=== PATIENT | female | born 1950 | race Caucasian/White ===

== ENCOUNTER 2019-05-20 12:09 | Inpatient (IN) | payer MEDICARE, MEDICAID ==
[2019-05-20] VITALS (35 sets, daily range): BP systolic 79–121; BP diastolic 49–81
[~2019-05-20] VITALS: Ht 170.2 cm; Wt 102.5 kg
--- NOTE | 2019-05-20 15:10 | NUR ---
PATIENT RECEIVED VIA EMS STRETCHER, ON LEVOPHED GTT AT 6 MCG/MIN AND O2 VIA NC AT 2 LPM VIA NC. PATIENT ALERT AND ORIENTED X 4. VSS. PATIENT ASSESSMENT COMPLETED. IV 20 GA LEFT WRIST AND IV 20 GA RIGHT FA PATENT. FELTON CATH WITH 200 CC UOP, DARK YELLOW NOTED. SR ON CM RATE OF 86, RR - 16 WITH SPO2 96%. BBS - CLEAR AND EQUAL.
[2019-05-20] MEDS ORDERED: PINDOLOL5 MG PO (15:28)
[2019-05-20] MEDS ORDERED: VITAMIN D31000 UNIT PO (15:28)
[2019-05-20] MEDS ORDERED: CLOTRIMAZOLE-BE30 ML TOPICAL (15:28)
[2019-05-20] MEDS ORDERED: PROTONIX40 MG PO (15:29)
--- NOTE | 2019-05-20 15:30 | NUR ---
DR. CALDERON AT ROOM ALONG WITH STEREOPTICIAN'S, EXAMINE PATIENT.
[2019-05-20] MEDS ORDERED: TESSALON PERLE100 MG PO (15:32)
[2019-05-20] MEDS ORDERED: PACERONE200 MG PO (15:33)
--- NOTE | 2019-05-20 15:50 | NUR ---
BP 108/65 (83) LEVOPHED GTT AT 2 MCG/MIN 15 CC/HR. STOPPED LEVOPHED GTT.
--- NOTE | 2019-05-20 16:46 | NUR ---
SPOKE TO JUAQUIN FLORES APN ADVISED TO CONTINUE LEVOPHED GTT FOR MAP OF >75.
--- NOTE | 2019-05-20 16:48 | NUR ---
BP 79/49 (68) LEVOPHED GTT RESTARTED AT 4 MCG/MIN.
[2019-05-20 16:59] LABS: BASOPHILS 0.2 % (0-2); EOSINOPHILS 0.9 % (0-7); HEMATOCRIT 27.9 % (36.0-48.0); HEMOGLOBIN 9.1 g/dL (12-16); IMMATURE GRANULOCYTES 1.8 % (0-5); LYMPHOCYTES 4.8 % (15-50); MCH 26.5 pg (26.0-34.0); MCHC 32.6 g/dL (31.0-37.0); MCV 81.1 fL (80.0-100.0); MONOCYTES 9.2 % (2-11); NEUTROPHILS 83.1 % (40-80); PLATELET COUNT 58 10x3/uL (130-400); RBC 3.44 10x6/uL (4.00-5.40); RDW 18.6 % (11.5-14.5); WBC 11.6 10x3/uL (4.8-10.8)
[2019-05-20 17:11] LABS: ALBUMIN 1.7 g/dL (3.4-5.0); ANION GAP 16.9 mmol/L (8-16); BILIRUBIN - TOTAL 1.31 mg/dL (0.2-1.3); CALCIUM 8.2 mg/dL (8.5-10.1); CARBON DIOXIDE 11.8 mmol/L (21.0-32.0); CREATININE - SERUM 3.1 mg/dL (0.6-1.3); POTASSIUM - SERUM 3.7 mmol/L (3.5-5.1)
[2019-05-20 18:40] LABS: PLATELET ESTIMATE DECREASED
--- NOTE | 2019-05-20 19:00 | NUR ---
BEDSIDE REPORT AND SHIFT ASSESSMENT COMPLETE. L WRIST AND R FOREARM PIV, DRESSING CDI. LEVOPHED 8 MCG/MIN, 1/2 NS @ 125 W/ ABX. DENIES ANY NEEDS AT THIS TIME, WILL CONTINUE TO MONITOR.
--- NOTE | 2019-05-20 19:19 | NUR ---
PAGED DR. OLVERA AND CALLED BACK, ADVISED OF CONSULT WANTS ECHO DONE IN AM.
--- NOTE | 2019-05-20 19:21 | NUR ---
PAGED DR. BARROW TO NOTIFIY OF CONSULT.
--- NOTE | 2019-05-20 19:29 | NUR ---
DR. BARROW CALLED BACK WANTS ABG AND CXR IN AM.
--- NOTE | 2019-05-20 21:00 | NUR ---
MED GIVEN PER DEC. PT STATES SHE HAS NO ISSUE SWALLOWING PILLS WITH WATER, NO ISSUES NOTED. DENIES NEEDS AT THIS TIME.
--- NOTE | 2019-05-20 23:00 | NUR ---
REASSESSMENT COMPLETE. FELTON CARE AND CHG BATH COMPLETE. PT DENIES ANY NEEDS AT THIS TIME. WILL CONTINUE TO MONITOR.
[2019-05-21] VITALS (84 sets, daily range): BP systolic 80–120; BP diastolic 46–107; Ht 170.2 cm; Wt 102.5 kg
--- NOTE | 2019-05-21 01:00 | NUR ---
VSS, NO SIGNS OF ACUTE DISTRESS NOTED. NO NEEDS AT THIS TIME, WILL CONTINUE TO MONITOR.
--- NOTE | 2019-05-21 02:00 | NUR ---
MED REC DONE PER RECORDS FROM YAIMA STOKES CONFUSED/LETHARGIC AND UNABLE TO ANSWER.
[2019-05-21] MEDS ORDERED: ZYLOPRIM100 MG PO (02:21)
[2019-05-21] MEDS ORDERED: MOBIC7.5 MG PO (02:30)
--- NOTE | 2019-05-21 03:00 | NUR ---
PT CONFUSED AND LETHARGIC, UNABLE TO SAY WHERE SHE IS, WHAT DAY IT IS, OR WHAT MONTH IT IS. REQUESTS LIGHT TO BE KEPT ON. REASSESSMENT COMPLETE, WILL CONTINUE TO MONITOR.
--- NOTE | 2019-05-21 05:00 | NUR ---
MEDS GIVEN PER MAR, PT DENIES ANY NEEDS. WILL CONTINUE TO MONITOR.
[2019-05-21 05:53] LABS: ALBUMIN 1.7 g/dL (3.4-5.0); ANION GAP 16.1 mmol/L (8-16); BILIRUBIN - TOTAL 1.65 mg/dL (0.2-1.3); CALCIUM 8.4 mg/dL (8.5-10.1); CARBON DIOXIDE 12.8 mmol/L (21.0-32.0); CREATININE - SERUM 3.1 mg/dL (0.6-1.3); POTASSIUM - SERUM 3.9 mmol/L (3.5-5.1); PROTEIN - SERUM 4.9 g/dL (6.4-8.2); VANCOMYCIN - RANDOM 21.4 ug/mL (10.0-20.0)
--- NOTE | 2019-05-21 06:45 | NUR ---
LARGE LOOSE STOOL BM, COMPLETE LINEN CHANGE.
--- NOTE | 2019-05-21 07:00 | NUR ---
SHIFT ASSESSMENT COMPLETED. PT CARE ASSUMED. MONITORS ON AND WORKING, SEE FLOW SHEET FOR FURTHER DETAILS. WILL CONTINUE TO OBSERVE.
[2019-05-21 07:33] LABS: BASOPHILS 0.2 % (0-2); EOSINOPHILS 1.1 % (0-7); HEMATOCRIT 27.8 % (36.0-48.0); HEMOGLOBIN 8.9 g/dL (12-16); IMMATURE GRANULOCYTES 1.5 % (0-5); LYMPHOCYTES 6.6 % (15-50); MCH 25.8 pg (26.0-34.0); MCV 80.6 fL (80.0-100.0); MONOCYTES 9.7 % (2-11); NEUTROPHILS 80.9 % (40-80); RBC 3.45 10x6/uL (4.00-5.40); RDW 18.4 % (11.5-14.5); WBC 10.4 10x3/uL (4.8-10.8)
[2019-05-21 07:51] LABS: PLATELET COUNT 31 10x3/uL (130-400)
--- NOTE | 2019-05-21 09:55 | NUR ---
SPOKE WITH DR BARROW CONCERNING PTS ABGS, REC'D ORDERS TO PUT IN ORDES FOR A CENTRAL LINE AND TO CHANGE IVF TO BICARB DRIP.
[2019-05-21 11:30] LABS: APTT 27.6 SECONDS (22.8-39.4); D-DIMER-QUANTITATIVE 3.76 ug/mLFEU (0.20-0.54); INR 1.47 (0.85-1.17); PROTIME 17.3 SECONDS (11.6-15.0)
[2019-05-21 13:39] LABS: % SATURATION 31 % (15-55); IRON 42 ug/dl (35-150); TOTAL IRON BIND CAPACITY 132 ug/dl (260-445); UNSAT IRON BIND CAPACITY 90 ug/dl (150-375)
--- NOTE | 2019-05-21 14:30 | NUR ---
PT REPORT RECEIVED FROM DAY SHIFT NURSE. WENT TO PATIENT ROOM TO INTRODUCE SELF AND SEE PATIENT. ON NC 2L BOYFRIEND IN ROOM WITH PATIENT. WILL CONTINUE TO MONITOR
--- NOTE | 2019-05-21 19:00 | NUR ---
BEDSIDE REPORT AND SHIFT ASSESSMENT COMPLETE. L IJ CENTRAL LINE CATHETER WNL, DRESSING CDI. PT REFUSING DINNER TRAY, STATES SHE IS NOT HUNGRY. AUDIBLE EXPIRATORY WHEEZES, LOWER LOBES DIMINISHED. PT CONFUSED AND DISORIENTED TO PLACE, TIME, AND SITUATION. WILL CONTINUE TO MONITOR.
--- NOTE | 2019-05-21 21:00 | NUR ---
FRIEND AT BEDSIDE, UPDATE GIVEN. MEDS GIVEN PER MAR CRUSHED IN VANILLA PUDDING. VSS, NO SIGNS OF ACUTE DISTRESS NOTED. WILL CONTINUE TO MONITOR.
--- NOTE | 2019-05-21 23:00 | NUR ---
REASSESSMENT COMPLETE. AFIB ON MONITOR, RATE OF 120's. PT ASYMPTOMATIC.
[2019-05-22] VITALS (24 sets, daily range): BP systolic 84–123; BP diastolic 49–98
--- NOTE | 2019-05-22 | NUR ---
DR FINN NOTIFIED OF AFIB, NEW ORDERS GIVEN. MEDS GIVEN PER MAR CRUSHED IN PUDDING, PT TOLERATED. WILL CONTINUE TO MONITOR.
--- NOTE | 2019-05-22 01:00 | NUR ---
AFIB ON MONITOR, RATE OF 110's. PT SLEEPING, NO SIGNS OF ACUTE DISTRESS NOTED. WILL CONTINUE TO MONITOR.
--- NOTE | 2019-05-22 03:00 | NUR ---
REASSESSMENT COMPLETE. VSS, NO SIGNS OF ACUTE DISTRESS NOTED. PT SLEEPING, DENIES ANY NEEDS AT THIS TIME.
[2019-05-22 04:45] LABS: BASOPHILS 0.1 % (0-2); EOSINOPHILS 4.3 % (0-7); HEMATOCRIT 26.5 % (36.0-48.0); HEMOGLOBIN 8.7 g/dL (12-16); LYMPHOCYTES 10.6 % (15-50); MCH 25.9 pg (26.0-34.0); MCHC 32.8 g/dL (31.0-37.0); MCV 78.9 fL (80.0-100.0); MONOCYTES 9.1 % (2-11); NEUTROPHILS 73.9 % (40-80); RBC 3.36 10x6/uL (4.00-5.40); RDW 18.2 % (11.5-14.5)
[2019-05-22 04:48] LABS: INR 1.58 (0.85-1.17); PLATELET COUNT 18 10x3/uL (130-400); PROTIME 18.3 SECONDS (11.6-15.0); WBC 7.1 10x3/uL (4.8-10.8)
[2019-05-22 04:54] LABS: ALBUMIN 1.6 g/dL (3.4-5.0); ANION GAP 16.3 mmol/L (8-16); BILIRUBIN - TOTAL 2.27 mg/dL (0.2-1.3); CALCIUM 8.5 mg/dL (8.5-10.1); CARBON DIOXIDE 15.1 mmol/L (21.0-32.0); CREATININE - SERUM 3.2 mg/dL (0.6-1.3); MAGNESIUM - SERUM 1.3 mg/dL (1.8-2.4); PHOSPHOROUS 4.2 mg/dL (2.5-4.9); POTASSIUM - SERUM 3.4 mmol/L (3.5-5.1); PROTEIN - SERUM 4.5 g/dL (6.4-8.2); VANCOMYCIN - RANDOM 31.3 ug/mL (10.0-20.0)
--- NOTE | 2019-05-22 05:00 | NUR ---
PT PLT COUNT 18, DR SOTO NOTIFIED. MEDS GIVEN PER DEC. VSS, NO SIGNS OF ACUTE DISTRESS NOTED. WILL CONTINUE TO MONITOR.
[2019-05-22 05:08] LABS: PLATELET ESTIMATE DECREASED
[2019-05-22 05:42] LABS: ERYTHROCYTE SEDIMENTATION RATE 38 mm/hr (0-30)
[2019-05-22 05:43] LABS: APPEARANCE HAZY (CLEAR); BILIRUBIN NEGATIVE (NEGATIVE); COLOR YELLOW (YELLOW); GLUCOSE NEGATIVE (NEGATIVE); KETONE NEGATIVE (NEGATIVE); NITRITE NEGATIVE (NEGATIVE); PROTEIN TRACE mg/dL (NEGATIVE); SPECIFIC GRAVITY 1.015 (1.005-1.020); UROBILINOGEN NORMAL (NORMAL)
[2019-05-22 05:44] LABS: RED CELLS - URINE 0-5 /hpf (0-5); WHITE CELLS - URINE 25-50 /hpf (0-5)
[2019-05-22 05:45] LABS: BACTERIA FEW /hpf (NONE SEEN); EPITHELIAL CELLS NSEEN /hpf (0-5); YEAST >1+ /hpf (NONE SEEN)
--- NOTE | 2019-05-22 07:00 | NUR ---
PT REPORT RECEIVED FROM NAPRAPATH NURSE. SHIFT ASSESSMENT COMPLETED. NO FAMILY AT BEDSIDE. VSS NO DISTRESS NOTED. WILL CONTINUE TO MONITOR
[2019-05-22 10:11] LABS: HEPATITIS C ANTIBODY <0.1 S/CO RAT (0.0-0.9)
--- NOTE | 2019-05-22 10:22 | NUR ---
AM MEDICATIONS ADMINISTERED, PT TOLERATED WITH SOME DIFFICULTY SWALLOWING PO MEDS. WILL CONTINUE TO MONITOR
--- NOTE | 2019-05-22 11:00 | NUR ---
REASSESSMENT COMPLETED. INSTRUCTED TO HOLD LUNCH TRAY PENDING MRI. PATIENT NPO UNTIL FURTHER NOTICE
--- NOTE | 2019-05-22 13:00 | NUR ---
PT OBSERVED RESTING IN BED. NO DISTRESS NOTED. WILL CONTINUE TO MONITOR
--- NOTE | 2019-05-22 13:30 | NUR ---
ORDER FOR MRI CHANGED TO CT WITHOUT CONTRAST.
[2019-05-22 13:33] LABS: POTASSIUM - URINE 15.8 MMOL/L (12.0-62.0); PROTEIN - URINE 46.5 mg/dL (0.0-11.9)
--- NOTE | 2019-05-22 14:00 | NUR ---
DR POTTER AT BEDSIDE. ORDER GIVEN TO INCREASE BICARB TO 125ML AN HOUR. WILL CONTINUE TO MONITOR
--- NOTE | 2019-05-22 15:00 | NUR ---
DR MELARA IN PT ROOM GAVE ORDER TO DECREASE FLUID INTAKE. ORDERED TO DECREASE BICARB TO 60ML PER HOUR. WILL CONTINUE TO MONITOR
[2019-05-22 15:10] LABS: CEA 1.8 ng/mL (0.0-4.7)
--- NOTE | 2019-05-22 17:00 | NUR ---
WENT TO CT WITH PATIENT TOLERATED WELL. ABLE TO FOLLOW COMMANDS. RETURNED TO ROOM TO ATTACH LEADS FOR MONITORING. WILL CONTINUE TO MONITOR
--- NOTE | 2019-05-22 19:00 | NUR ---
BEDSIDE REPORT AND SHIFT ASSESSMENT COMPLETE. VSS, NO SIGNS OF ACUTE DISTRESS. WILL CONTINUE TO MONITOR.
--- NOTE | 2019-05-22 21:00 | NUR ---
FAMILY AT BEDSIDE, UPDATE GIVEN. GRANDSON (LUANN), IS NEXT OF KIN, AND SAID HE HOLDS POA FOR THE PT. HIS NUMBER IS [phone]. IF WE ARE UNABLE TO REACH HIM AT THAT NUMBER HIS 'S NUMBER IS [phone]. HE SAID THE PT HAS A LIVING WILL AND HE WILL TRY TO GET US A COPY TO PUT ON HER CHART.
--- NOTE | 2019-05-22 23:00 | NUR ---
PT SLEEPING. VSS, NO SIGNS OF ACUTE DISTRESS. WILL CONTINUE TO MONITOR.
[2019-05-23] VITALS (25 sets, daily range): BP systolic 105–134; BP diastolic 60–105
--- NOTE | 2019-05-23 01:00 | NUR ---
CHG BATH AND LINEN CHANGE COMPLETE.
--- NOTE | 2019-05-23 03:00 | NUR ---
MEDS GIVEN PER MAR. PT SLEEPING, WILL CONTINUE TO MONITOR.
[2019-05-23 04:37] LABS: BASOPHILS 0.2 % (0-2); EOSINOPHILS 2.1 % (0-7); HEMATOCRIT 20.9 % (36.0-48.0); IMMATURE GRANULOCYTES 2.3 % (0-5); LYMPHOCYTES 10.4 % (15-50); MCH 25.8 pg (26.0-34.0); MCHC 33.5 g/dL (31.0-37.0); MCV 77.1 fL (80.0-100.0); MONOCYTES 6.9 % (2-11); NEUTROPHILS 78.1 % (40-80); RBC 2.71 10x6/uL (4.00-5.40)
[2019-05-23 04:39] LABS: WBC 4.8 10x3/uL (4.8-10.8)
[2019-05-23 04:40] LABS: PLATELET COUNT 15 10x3/uL (130-400)
[2019-05-23 04:45] LABS: INR 1.64 (0.85-1.17); PROTIME 18.8 SECONDS (11.6-15.0)
[2019-05-23 04:46] LABS: APTT 38.2 SECONDS (22.8-39.4)
[2019-05-23 04:51] LABS: BILIRUBIN - TOTAL 1.99 mg/dL (0.2-1.3); CALCIUM 9.1 mg/dL (8.5-10.1); CREATININE - SERUM 2.9 mg/dL (0.6-1.3); PROTEIN - SERUM 4.8 g/dL (6.4-8.2); VANCOMYCIN - RANDOM 24.3 ug/mL (10.0-20.0)
--- NOTE | 2019-05-23 05:00 | NUR ---
FAMILY AT BEDSIDE, UPDATE GIVEN.
[2019-05-23 05:04] LABS: ALBUMIN 2.3 g/dL (3.4-5.0); ANION GAP 14.1 mmol/L (8-16); CARBON DIOXIDE 20.9 mmol/L (21.0-32.0)
--- NOTE | 2019-05-23 05:45 | NUR ---
PAGED LINUX UNIX SYSTEM ADMINISTRATOR FOR CALDERON REGARDING LABS, CALL CENTER SAID FERNANDO JONES IS LINUX UNIX SYSTEM ADMINISTRATOR. WERNER FOR CALL BACK.
--- NOTE | 2019-05-23 07:00 | NUR ---
PT REPORT RECEIVED FROM DIE BARBER NURSE. ORDER OF TWO PACKED RBC'S AND ONE PLATELET. ASSESSED PATIENT NO VISIBLE DISTRESS NOTED. WILL CONTINUE TO MONITOR
--- NOTE | 2019-05-23 09:00 | NUR ---
LAB CALLED BLOOD READY TO BE PICKED UP. INITIAL PRE TRANSFUSION VITALS OBTAINED. VSS. WILL CONTINUE TO MONITOR
--- NOTE | 2019-05-23 11:00 | NUR ---
PT IS COUGHING AND SEEMS TO BE CHOKING WHEN GIVEN PO MEDS. WILL HOLD PO MEDS UNTIL SWALLOW EVAL
--- NOTE | 2019-05-23 12:30 | NUR ---
Nutrition follow-up: Diet: Regular puree with nectar thick liquids PO intake poor labs reviewed Wt: 234# Recommend starting nutrition support due to pt not meeting estimated energy needs with current po intake: PEG tube vs NGT placement and tube feeding started RDN following.
--- NOTE | 2019-05-23 12:46 | NUR ---
OT NOTE: PT DOING BETTER TODAY. LESS SOB NOTED COMPARED TO YESTERDAY. A/AROM EXS TO B UES. BED MOB WITH MAX ASSIST. PERFORMED NUMEROUS TIMES IN ORDER TO CLEAN PT AND PROVIDE CLEAN LINENS. LARGE AMOUNT OF DIARRHEA ON THIS DATE. PT REQUIRING MAX ASSIST WITH ALL BASIC ADLS SECONDARY TO WEAKNESS AND EDEMA IN B UES. MARJAN GONZALEZ, OTR/L
--- NOTE | 2019-05-23 13:05 | NUR ---
SECOND UNIT OF BLOOD INFUSING. NURSE IN ROOM WITH PATIENT. VSS. WILL CONTINUE TO MONITOR
--- NOTE | 2019-05-23 14:37 | CN ---
PATIENT NAME:NORA SOLORIO MEDICAL RECORD: [id number] : [birth year] LOCATION:[id number] ADMIT DATE: 05/20/19 ACCOUNT: [id number] CONSULTING PHYSICIAN: CORRIE OLVERA MD REFERRING PHYSICIAN: ARBEN CALDERON MD DATE OF CONSULTATION: 05/21/2019 CARDIOLOGY CONSULTATION DIAGNOSES: 1. Atrial fibrillation, converted to sinus rhythm. 2. Anemia status post transfusion. 3. Acute kidney injury. 4. Pneumonia. 5. Hypotension. HISTORY OF PRESENT ILLNESS: Mrs. Solorio was sent from [place] for higher level of care secondary to pneumonia and hypotension. Prior to transfer, she did have an episode of atrial fibrillation. She was given Cordarone. She converted to sinus rhythm, she will be maintained in sinus rhythm. She has no other cardiac issues at this time. We will get an echocardiogram to rule out structural heart disease and/or cardiomyopathy that would contribute to the atrial fibrillation and contribute to her overall shortness of breath; however, at this time, no other cardiac workup or treatment is necessary. TRANSINT:[id number] Voice Confirmation ID: [id number] DOCUMENT ID: [id number] CORRIE OLVERA MD at 1437 CC: [id number] DICTATION DATE: 05/21/19 1059 EXECUTIVE PRODUCER: 05/21/19 1155 [place] [address]
--- NOTE | 2019-05-23 15:00 | NUR ---
PT LYING IN BED RESTING. VSS A-FIB NOTED ON THE MONITOR. WILL CONTINUE TO MONITOR
[2019-05-23 15:10] LABS: SPE - A/G RATIO 0.9 (0.7-1.7); SPE - ALBUMIN 1.9 g/dL (2.9-4.4); SPE - ALPHA-1 GLOBULIN 0.3 g/dL (0.0-0.4); SPE - ALPHA-2 GLOBULIN 0.4 g/dL (0.4-1.0); SPE - BETA GLOBULIN 0.4 g/dL (0.7-1.3); SPE - GAMMA GLOBULIN 1.1 g/dL (0.4-1.8); SPE - M-SPIKE Not Observed g/dL (Not Observed); SPE - TOTAL PROTEIN 4.1 g/dL (6.0-8.5)
--- NOTE | 2019-05-23 17:15 | NUR ---
OT NOTE: PT REQUIRED MAX A WITH BED MOB TASKS. PT REQUIRED MAX A WITH HYGIENE TASKS. PT IS IMPROVING ACTIVITY TOLERANCE AND ENDURANCE. PT COMPLETED BUE AAROM ROM TASKS AND POSITIONING TO DECREASE EDEMA. THANK YOU, KARLEE THOMPSON
--- NOTE | 2019-05-23 19:33 | MORECARE ---
CASE MANAGEMENT DISCHARGE SUMMARY PATIENT: NORA ARANGO UNIT: [id number] ADM DATE: 05/20/19 AGE: 68 : 49 SEX: F ROOM/BED: D.2310 AUTHOR: IMAN BAUTISTA PHYSICIAN: REFERRING PHYSICIAN: ARBEN CALDERON MD DATE OF SERVICE: 05/23/19 Discharge Plan Patient Name: NORA ARANGO Facility: [facility]:[place] : 1950 Planned Disposition: Anticipated Discharge Date: Discharge Date: Expected LOS: Initial Reviewer: [email or web address] Initial Review Date: 05/20/2019 Generated: 05/23/19 8:33 pm DCPIA - Discharge Planning Initial Assessment Updated by [email or web address]: Zoie Brown on 05/23/19 7:31 pm * How many steps to enter\exit or inside your home? * PCP WALKER ? * [facility] * Preadmission Environment Home with Family * ADLs Independent * Other Equipment WALKER, CANE, WHEELCHAIR * List name and contact numbers for known caregivers / representatives who currently or will assist patient after discharge: ZINA VILLAGRAN ?? [phone] * Verbal permission to speak to the caregivers and representatives has been obtained from the patient. Yes * Community resources currently utilized None * Additional services required to return to the preadmission environment? No * Can the patient safely return to the preadmission environment? Yes * Has this patient been hospitalized within the prior 30 days at any hospital? No Patient Name: NORA ARANGO Page [phone] at 1933 All edits/amendments must be made on the electronic document DICTATION DATE: 05/23/191932 SECONDARY ENGLISH TEACHER: HUMBERTO 05/23/191932 RPT#: [id number] DC DATE: STATUS: ADM IN [facility] [address] [place] [address] END OF REPORT
--- NOTE | 2019-05-23 19:40 | MORECARE ---
CASE MANAGEMENT DISCHARGE SUMMARY PATIENT: NORA ARANGO UNIT: [id number] ADM DATE: 05/20/19 AGE: 68 : 49 SEX: F ROOM/BED: D.2310 AUTHOR: MICHELE,DOC PHYSICIAN: REFERRING PHYSICIAN: ARBEN CALDERON MD DATE OF SERVICE: 05/23/19 Discharge Plan Patient Name: NORA ARANGO Facility: [facility]:[place] : 1950 Planned Disposition: Anticipated Discharge Date: Discharge Date: Expected LOS: Initial Reviewer: [email or web address] Initial Review Date: 05/20/2019 Generated: 05/23/19 8:39 pm Comments DCP- Discharge Planning Updated by [email or web address]: Zoie Brown on 05/23/19 6:[address] LATE ENTRY 05/21/19 Patient Name: NORA ARANGO Admission Status: Elective Accout number: [id number] Admission Date: 05-20-2019 : 1950 Admission Diagnosis:SEPSIS, UNSPECIFIED ORGANISM Attending: ARBEN CALDERON Current LOS: 3 Anticipated DC Date: Planned Disposition: Primary Insurance: [facility] MEDICARE SOLUTIONS Discharge Planning Comments: CM met with patient at bedside after explaining CM role and obtaining verbal consent. Patient very difficult to understand and very SOB while trying to talk with CM. Patient lives at home with her grandson?? Zina Villagran and plans to return there upon discharge. CM discussed availability / needs of home health and medical equipment. Patient states she has walker, cane and wheelchair . Patient denies having any home health services. CM will need to come back at a later time and re-evaluate discharge needs or try to contact family. CM will continue to follow and assist as needed with discharge planning / needs. Sales Operations Manager: Zoie Brown DCPIA - Discharge Planning Initial Assessment Updated by [email or web address]: Zoie Brown on 05/23/19 7:31 pm * How many steps to enter\exit or inside your home? * PCP WALKER ? * [facility] [place] * Preadmission Environment Home with Family * ADLs Independent * Other Equipment WALKER, CANE, WHEELCHAIR * List name and contact numbers for known caregivers / representatives who currently or will assist patient after discharge: ZINA VILLAGRAN ?? [phone] * Verbal permission to speak to the caregivers and representatives has been obtained from the patient. Yes * Community resources currently utilized None * Additional services required to return to the preadmission environment? No * Can the patient safely return to the preadmission environment? Yes * Has this patient been hospitalized within the prior 30 days at any hospital? No Last DP export: 05/23/19 6:33 pm Patient Name: NORA ARANGO Page [phone] at 1940 All edits/amendments must be made on the electronic document DICTATION DATE: 05/23/191938 FOOTBALL COACH: HUMBERTO 05/23/191938 RPT#: [id number] DC DATE: STATUS: ADM IN [facility] [address] [place] [address] END OF REPORT
[2019-05-24] VITALS (24 sets, daily range): BP systolic 116–156; BP diastolic 62–97
[2019-05-24 05:26] LABS: BASOPHILS 0.2 % (0-2); EOSINOPHILS 1.1 % (0-7); IMMATURE GRANULOCYTES 1.6 % (0-5); LYMPHOCYTES 10.6 % (15-50); MCH 27.2 pg (26.0-34.0); MCHC 35.4 g/dL (31.0-37.0); MCV 76.9 fL (80.0-100.0); MONOCYTES 9.5 % (2-11); RDW 16.9 % (11.5-14.5)
[2019-05-24 05:28] LABS: HEMOGLOBIN 9.2 g/dL (12-16); RBC 3.38 10x6/uL (4.00-5.40); WBC 6.3 10x3/uL (4.8-10.8)
[2019-05-24 05:30] LABS: PLATELET COUNT 8 10x3/uL (130-400)
[2019-05-24 05:48] LABS: ALBUMIN 2.8 g/dL (3.4-5.0); BILIRUBIN - TOTAL 3.09 mg/dL (0.2-1.3); CALCIUM 9.3 mg/dL (8.5-10.1); CREATININE - SERUM 2.7 mg/dL (0.6-1.3); MAGNESIUM - SERUM 1.8 mg/dL (1.8-2.4); PHOSPHOROUS 3.5 mg/dL (2.5-4.9); PROTEIN - SERUM 5.2 g/dL (6.4-8.2); VANCOMYCIN - RANDOM 21.4 ug/mL (10.0-20.0)
[2019-05-24 05:51] LABS: ANION GAP 13.8 mmol/L (8-16); POTASSIUM - SERUM 2.8 mmol/L (3.5-5.1)
[2019-05-24 06:30] LABS: PLATELET ESTIMATE DECREASED
--- NOTE | 2019-05-24 07:30 | NUR ---
OPENS EYES TO VERBAL STIMULI, SKIN WARM AND DRY. PO MEDS GIVEN CRUSHED AND PLACED IN APPLE SAUCE. TOLERATED WELL THICKEN LIQUID PROVIDED. SOME COUGHING SEVERAL MINUTES AFTER SWALLOWING. LIJ CENTRAL LINE INFUSING WITH BICARG GTT AT 50 ML HOUR. KCL RIDER STARTED. DR. CALDERON HERE. NO DISTRESS. STATES SHE IS SHORT OF BREATH NO LABORED RESP NOTED, NO ABD BREATHING. PULSE OX 99% WITH O2 AT 1.5 LITERS.
[2019-05-24 08:10] LABS: HAPTOGLOBIN 29 mg/dL (34-200)
--- NOTE | 2019-05-24 09:20 | NUR ---
FAMILY HERE UPDATE GIVEN
--- NOTE | 2019-05-24 11:00 | NUR ---
dr. shultz here. tolerating up in chair well.
--- NOTE | 2019-05-24 12:00 | NUR ---
LUNCH SERVED. REFUSES TO BE FEED. FEED HERSELF A FEW BITES OF MASH POTATOES AND GRAVY.
--- NOTE | 2019-05-24 13:39 | NUR ---
RETURNED TO BED PER PHYSICAL THERAPY, SNALL LOOSE BROWN STOOL. COMPLETED HIBCLENS BATH GIVEN WITH LINEN CHANGE. FELTON CATH CARE DONE. REPOSITIONED ON RIGHT SIDE. TOLERATED FAIR. DOES BECOME SHORT OF BREATH EASILY.
--- NOTE | 2019-05-24 15:00 | NUR ---
NAPPING AT INTERVALS.REPOSITIONED TOTAL ASSISTANCES NEEDED. PATIENT DOES BECOME SHORT OF BREATH WITH MINIMAL EXERTION. MONITOR SR. FELTON CATH PATENT.
[2019-05-24 15:08] LABS: CEA 1.7 ng/mL (0.0-4.7)
--- NOTE | 2019-05-24 16:30 | NUR ---
SUPPER TRAY SERVED. PATIENT DOES TRY TO FEED HERSELF. BECOMES SHORT OF BREATH, HAS DIFFICULTY WITH GETTING SPOON TO HER MOUHT. ATE MORE AT SUPER THAN AT LUNCH. MEDS CRUSHED AND PLACED APPLE SAUCE.
--- NOTE | 2019-05-24 17:23 | NUR ---
DR. KOTHARI ANSWERING SERVICE CALLED. DR. MAHER CHARGING OPERATOR.
--- NOTE | 2019-05-24 17:36 | NUR ---
DR. MAHER NOTIFIED OF PLATELET COUNT OF 8. STATES SHE WILL BE HERE LATER TO SEE PATIENT
--- NOTE | 2019-05-24 18:47 | NUR ---
DR. MAHER HERE ORDERS RECEIVED
--- NOTE | 2019-05-24 22:15 | NUR ---
1900 PT ASSESSMENT COMPLETED AT THIS TIME 2044 DR. POTTER CALLED ABOUT INCREASED RESP EFFORT AND WHEEZING NOTED. NEW ORDERS NOTED AT THIS TIME. 2119 PT APPEARED TO BE RELAXED MORE AND HAVING LESS LARBORED BREATHING. PT ABLE TO TALK A LITTLE MORE WITH CATCHING HER BREATH. WILL CONT TO MONITOR FOR CHANGES
[2019-05-25] VITALS (23 sets, daily range): BP systolic 101–151; BP diastolic 57–99
[2019-05-25 05:13] LABS: BASOPHILS 0.2 % (0-2); EOSINOPHILS 0 % (0-7); HEMATOCRIT 28.3 % (36.0-48.0); HEMOGLOBIN 9.8 g/dL (12-16); IMMATURE GRANULOCYTES 1.8 % (0-5); LYMPHOCYTES 8.8 % (15-50); MCH 26.6 pg (26.0-34.0); MCHC 34.6 g/dL (31.0-37.0); MCV 76.7 fL (80.0-100.0); MONOCYTES 9.5 % (2-11); NEUTROPHILS 79.7 % (40-80); RBC 3.69 10x6/uL (4.00-5.40)
[2019-05-25 05:14] LABS: WBC 14.4 10x3/uL (4.8-10.8)
[2019-05-25 05:15] LABS: PLATELET COUNT 8 10x3/uL (130-400)
[2019-05-25 05:44] LABS: APTT 36.5 SECONDS (22.8-39.4); INR 1.83 (0.85-1.17); PROTIME 20.5 SECONDS (11.6-15.0)
[2019-05-25 05:53] LABS: ALBUMIN 3.2 g/dL (3.4-5.0); ANION GAP 13.1 mmol/L (8-16); BILIRUBIN - TOTAL 4.12 mg/dL (0.2-1.3); CALCIUM 9.3 mg/dL (8.5-10.1); CARBON DIOXIDE 28.6 mmol/L (21.0-32.0); CREATININE - SERUM 2.5 mg/dL (0.6-1.3); POTASSIUM - SERUM 3.7 mmol/L (3.5-5.1); PROTEIN - SERUM 5.8 g/dL (6.4-8.2); VANCOMYCIN - RANDOM 16.9 ug/mL (10.0-20.0)
--- NOTE | 2019-05-25 07:00 | NUR ---
2300 REASSESSMENT COMPLETED AT THSI TIME, PT RESP EVEN AND SHALLOW AT THIS TIME. PT RESTING WITH EYES CLOSED, NO DISTRESS NOTED AT THSI TIME 0100 VITAL SIGNS STABLE AT THSI TIME, WILL MONITOR FOR CHANGES. 0300 REASSESSMENT COMPLETED AT THIS TIME. PT DENIES PROBLEMS, NO DISTRESS SEEN AT THIS TIME. WILL MONITOR FOR CHANGES. 0345 PT STARTED C/O INCREASED SOB. PT WAS COACHED ON SLOWING HER BREATHING AND BREATHING THROUGH HER NOSE. PT'S SPO2 WOULD COME UP TO 94% 0415 PT STATES THAT HER BEATHING IS GETTING WORSE. HR WAS NOTED TO BE INCREASED TO 120-130 AND NOW AFIB WITH RVR. 0440 RT SWITCHED PT TO 5 LPM N/C AND DR. POTTER WAS PAGED 0555 DR. PUSHPA POTTS AGAIN RESPONDED BACK AT 0605 WITH NEW ORDERS 0614 DR. CHRISTIANSON CALLED ABOUT HER WITH NEW ORDERS
--- NOTE | 2019-05-25 07:15 | NUR ---
PATIENT WITH INCREASE SHORTNESS OF BREATH LABORED RESP. NOTED. HEART RATE 104-124 RHYTHM ATRIAL FIB, DENIES PAIN. HIGH FLOW OXYGEN AT 12 LITERS PER NC PULSE OX 90-92%. FELTON CATH PATENT WITH 400 ML OF URINE IN BAG. LEFT IJ CENTRAL LINE DOUBLE LUMEN INFUSING WITH BICARB GTT AT 50 ML HOUR, CVP ZERO AND CHECK 19 CVP. HEAD OF BED ELEVATED 45 DEGREES. HEEL BRIDGES WITH PILLOW.
--- NOTE | 2019-05-25 07:35 | NUR ---
DR. CHRISTIANSON HERE ORDERS RECEIVED FOR CARDIZEM GTT 10 MG HOUR, WANTS TO SLOW HER RATE DOWN TO SEE IF SHE WILL GO BACK INTO SR.
--- NOTE | 2019-05-25 09:00 | NUR ---
GOING IN AND OUT OF SR AND ATRIAL FIB. MEDS CRUSHED AND PLACED IN APPLE SAUCE. SWALLOWED WITH MINIMAL DIFFICULTY. ORAL CARE DONE. DRIED BLOOD NOTED. REPOSITIONED. SMALL BROWN LOOSE STOOL NOTED. MOISTURE BARRIER CREAM APPLIED BETWEEN LEGS WHERE SKIN EXCORIATED. PATIENT TOLERATED FAIR.
--- NOTE | 2019-05-25 10:30 | NUR ---
CALLED PRASAD KONG NOTIFIED HIM CONDITION OF PATIENT DECLINING, INCREASE LUNG CONGESTION TREATING HER WITH MEDS, BUT STILL WITH INCREASE CONGESTON, AND INCREASE SHORTNESS OF BREATH. MENTION PATIENT STATES SHE DOES NOT WANT TO BE ON LIFE SUPPORT OR HAVE CHEST COMPRESSIONS DONE. VERBALIZED UNDERSTANDING. STATES HE DOES NOT THINK IT WOULD HURT TO DO CPR BUT WOULD NOT WANT HER ON A MACHINE.
--- NOTE | 2019-05-25 11:00 | NUR ---
DR. MAHER HERE ORDERS RECEIVED.
--- NOTE | 2019-05-25 11:45 | NUR ---
PLATELETS STARTED . PATIENT PLACED ON VAPOR MIST HIGH FLOW 100% OXYGEN PER RESP THERAPY. DR. BARROW AND KVNG HERE UPDATE GIVEN. BICAR GTT TURNED OFF. CARDIZEM CONTINUES AT 10 MG HOUR. PATIENT IN SR [facility] PAC. SPEECH STILL GARBLED
--- NOTE | 2019-05-25 12:45 | NUR ---
PLATELETS COMPLETED. PATIENT STILL WITH LABORED RESP. ON VAPOTHERM AT 100% OXYGEN.
--- NOTE | 2019-05-25 14:00 | NUR ---
PERICARE DONE. CLEAN PADS APPLIED. TOLERATED FAIR.
--- NOTE | 2019-05-25 16:00 | NUR ---
WANTING MILK SIPS OF WATER PROVIDED. GOOD COUGH UNPRODUCTIVE. LASIX GTT AT 10 MG HOUR. CARDIZEM DECREASED FOR HEART RATE BELOW 60 PATIENT STILL IN SR WITH FREQ PAC
[2019-05-25 16:07] LABS: ADAMTS13 ACTIVITY 32.1 % (>66.8)
--- NOTE | 2019-05-25 16:43 | NUR ---
DR. ENGLAND NOTIFIED OF TERMINMAL EXTUBATION. SERVICES FOR DR. MELARA CALLED
--- NOTE | 2019-05-25 17:22 | NUR ---
LIVE IN BOYFRIEND HERE UPDATE GIVEN.
--- NOTE | 2019-05-25 20:20 | NUR ---
ENTERED PATIENT ROOM. PATIENT HAD COUGHED/SPIT UP SMALL AMT OF BRIGHT RED BLOOD. O2 SAT 82%. RT CALLED TO ROOM, ADJUSTED BIPAP TO 100% FIO2 . O2 SAT UP TO 90% IMMEDIATE DESATURATION OBSERVED IF BIPAP MASK REMOVED.
--- NOTE | 2019-05-25 21:00 | NUR ---
GRANDSHAWN ODELL WHO IS NEXT OF KIN AT BEDSIDE, UPDATED ON PATIENT CONDITION. DISCUSSED CODE STATUS. GRANDSON WISHES FOR PATIENT'S CODE STATUS TO BE CHANGED TO DNR AT THIS TIME. WITNESSED BY MALATHI LEWIS
[2019-05-26] VITALS (24 sets, daily range): BP systolic 75–113; BP diastolic 44–74
--- NOTE | 2019-05-26 02:25 | NUR ---
PATIENT RESP 40/MIN AND LABORED. 02 SAT 85% ON BIPAP FIO2 100%. SPOKE WITH DR. BARROW. NEW ORDERS RECEIVED. RT ALSO NOTIFIED
[2019-05-26 05:15] LABS: HEMOGLOBIN 9.6 g/dL (12-16); MCH 26.7 pg (26.0-34.0); MCHC 34.3 g/dL (31.0-37.0); MCV 77.8 fL (80.0-100.0); PLATELET COUNT 13 10x3/uL (130-400); RDW 17.1 % (11.5-14.5); WBC 24.2 10x3/uL (4.8-10.8)
[2019-05-26 05:29] LABS: ALBUMIN 2.4 g/dL (3.4-5.0); ANION GAP 15.8 mmol/L (8-16); BILIRUBIN - TOTAL 4.83 mg/dL (0.2-1.3); CALCIUM 8.8 mg/dL (8.5-10.1); CREATININE - SERUM 2.6 mg/dL (0.6-1.3); MAGNESIUM - SERUM 1.8 mg/dL (1.8-2.4); PHOSPHOROUS 5.3 mg/dL (2.5-4.9); POTASSIUM - SERUM 3.8 mmol/L (3.5-5.1); VANCOMYCIN - RANDOM 21.7 ug/mL (10.0-20.0)
[2019-05-26 06:20] LABS: INR 2.03 (0.85-1.17)
--- NOTE | 2019-05-26 07:00 | NUR ---
REPORT RECEIVED FROM PLANTING MATERIAL UNLOADER NURSE. PT IN BED RESTING. ON BIPAP. NO NEEDS NOTED AT THIS TIME. WILL CONTINUE TO MONITOR
[2019-05-26 07:29] LABS: HYPOCHROMASIA 2+; LYMPHOCYTES 3 % (15-50); MONOCYTES 3 % (2-11); NEUTROPHILS 80 % (40-80); PLATELET ESTIMATE DECREASED
--- NOTE | 2019-05-26 09:00 | NUR ---
AM MEDICATIONS GIVEN. PO MEDS HELD BECAUSE PATIENT ON BIPAP AND DOES NOT TOLERATE BEING TAKEN OFF. VSS WILL CONTINUE TO MONITOR
--- NOTE | 2019-05-26 09:44 | NUR ---
Nutrition follow-up: Pt on BIPAP and cannot tolerate being off. Now DNR RDN will continue to monitor for change of status RND following.
--- NOTE | 2019-05-26 11:00 | NUR ---
REASSESSMENT COMPLETED. NO NEW NEEDS AT THIS TIME. VSS. WILL CONTINUE TO MONITOR
--- NOTE | 2019-05-26 13:00 | NUR ---
PT LYING IN BED ON BIPAP. NO NEEDS NOTED AT THIS TIME. WILL CONTINUE TO MONITOR
--- NOTE | 2019-05-26 15:00 | NUR ---
NO NEEDS NOTED AT THIS TIME. PT APPEARS TO BE RESTING. VSS. WILL CONTINUE TO MONITOR. FAMILY AT BEDSIDE
--- NOTE | 2019-05-26 17:00 | NUR ---
ORAL CARE PROVIDED. PT DESAT QUICKLY. PUT BACK ON BIPAP. OXYGEN SATURATION INCREASING. WILL CONTINUE TO MONITOR
--- NOTE | 2019-05-26 19:00 | NUR ---
SHIFT ASSESSMENT COMPLETE. VS STABLE. NO VISUAL CUES OF DISTRESS NOTED. WILL CONTINUE TO MONITOR.
--- NOTE | 2019-05-26 21:00 | NUR ---
SHIFT ASSESSMENT COMPLETE. VS STABLE. NO VISUAL CUES OF DISTRESS NOTED. WILL CONTINUE TO MONITOR.
--- NOTE | 2019-05-26 23:00 | NUR ---
VS STABLE. NO VISUAL CUES OF DISTRESS NOTED. WILL CONTINUE TO MONITOR.
--- NOTE | 2019-05-26 23:00 | NUR ---
VS STABLE. NO VISUAL CUES OF DISTRESS NOTED. WILL CONTINUE TO MONITOR.
[2019-05-27] VITALS (12 sets, daily range): BP systolic 40–99; BP diastolic 26–66
--- NOTE | 2019-05-27 01:00 | NUR ---
VS STABLE. NO VISUAL CUES OF DISTRESS NOTED. WILL CONTINUE TO MONITOR.
--- NOTE | 2019-05-27 03:00 | NUR ---
VS STABLE. NO VISUAL CUES OF DISTRESS NOTED. WILL CONTINUE TO MONITOR.
--- NOTE | 2019-05-27 05:00 | NUR ---
VS STABLE. NO VISUAL CUES OF DISTRESS NOTED. WILL CONTINUE TO MONITOR.
--- NOTE | 2019-05-27 05:46 | NUR ---
SHIFT ASSESSMENT COMPLETE. VS STABLE. NO VISUAL CUES OF DISTRESS NOTED. WILL CONTINUE TO MONITOR.
--- NOTE | 2019-05-27 05:47 | NUR ---
VS STABLE. NO VISUAL CUES OF DISTRESS NOTED. WILL CONTINUE TO MONITOR.
--- NOTE | 2019-05-27 07:00 | NUR ---
REPORT RECEIVED FROM WHEAT CLEANER NURSE. VSS NO SIGNS OF DISTRESS NOTED. WILL CONTINUE TO MONITOR
[2019-05-27 07:22] LABS: BASOPHILS 0.1 % (0-2); EOSINOPHILS 0 % (0-7); HEMATOCRIT 26.2 % (36.0-48.0); HEMOGLOBIN 8.7 g/dL (12-16); IMMATURE GRANULOCYTES 0.7 % (0-5); LYMPHOCYTES 4.7 % (15-50); MCH 26.4 pg (26.0-34.0); MCHC 33.2 g/dL (31.0-37.0); MCV 79.6 fL (80.0-100.0); MONOCYTES 4.7 % (2-11); NEUTROPHILS 89.8 % (40-80); PLATELET COUNT 16 10x3/uL (130-400); RBC 3.29 10x6/uL (4.00-5.40); RDW 17.7 % (11.5-14.5); WBC 23.9 10x3/uL (4.8-10.8)
[2019-05-27 07:54] LABS: ALBUMIN 2.2 g/dL (3.4-5.0); ANION GAP 22.3 mmol/L (8-16); BILIRUBIN - TOTAL 6.2 mg/dL (0.2-1.3); CALCIUM 9.2 mg/dL (8.5-10.1); CREATININE - SERUM 3.1 mg/dL (0.6-1.3); POTASSIUM - SERUM 4.3 mmol/L (3.5-5.1)
[2019-05-27 08:01] LABS: INR 2.24 (0.85-1.17); PROTIME 24.1 SECONDS (11.6-15.0)
--- NOTE | 2019-05-27 09:45 | NUR ---
PT PRASAD CONTACTED. PT NOW ON COMFORT MEASURES. BIPAP REMOVED AND NRB PUT ON. WILL CONTINUE TO MONITOR
--- NOTE | 2019-05-27 10:15 | NUR ---
PT HEART RATE DROPPING. ASYSTOLE ON MONITOR. FAMILY NOTIFIED, AND DR CARRERO NOTIFIED
--- NOTE | 2019-05-27 11:15 | NUR ---
ANEL NOTIFIED OF PT
--- NOTE | 2019-05-27 11:26 | NUR ---
HOME NOTIFIED OF NEED OF SERVICES
--- NOTE | 2019-05-27 13:30 | NUR ---
HOME HERE FOR PT
--- NOTE | 2019-05-27 19:22 | MORECARE ---
CASE MANAGEMENT DISCHARGE SUMMARY PATIENT: NORA ARANGO UNIT: [id number] ADM DATE: 05/20/19 AGE: 68 : [birth year] SEX: F ROOM/BED: D.2310 AUTHOR: MICHELE,DOC PHYSICIAN: REFERRING PHYSICIAN: ARBEN CALDERON MD DATE OF SERVICE: 05/27/19 Discharge Plan Patient Name: NORA ARANGO Facility: [facility]:[place] : 1950 Planned Disposition: Anticipated Discharge Date: Discharge Date: 05/27/2019 Expected LOS: Initial Reviewer: [email or web address] Initial Review Date: 05/20/2019 Generated: 05/27/19 8:22 pm DCP- Discharge Planning Updated by [email or web address]: Zoie Brown on 05/23/19 6:[address] LATE ENTRY 05/21/19 Patient Name: NORA ARANGO Admission Status: Elective Accout number: [id number] Admission Date: 05-20-2019 : 1950 Admission Diagnosis:SEPSIS, UNSPECIFIED ORGANISM Attending: ARBEN CALDERON Current LOS: 3 Anticipated DC Date: Planned Disposition: Primary Insurance: [employer] Discharge Planning Comments: CM met with patient at bedside after explaining CM role and obtaining verbal consent. Patient very difficult to understand and very SOB while trying to talk with CM. Patient lives at home with her grandson?? Zina Villagran and plans to return there upon discharge. CM discussed availability / needs of home health and medical equipment. Patient states she has walker, cane and wheelchair . Patient denies having any home health services. CM will need to come back at a later time and re-evaluate discharge needs or try to contact family. CM will continue to follow and assist as needed with discharge planning / needs. Senior Solutions Engineer: Zoie Brown DCPIA - Discharge Planning Initial Assessment Updated by [email or web address]: Zoie Brown on 05/23/19 7:31 pm * How many steps to enter\exit or inside your home? * PCP WALKER ? * [facility] * Preadmission Environment Home with Family * ADLs Independent * Other Equipment WALKER, CANE, WHEELCHAIR * List name and contact numbers for known caregivers / representatives who currently or will assist patient after discharge: ZINA VILLAGRAN ?? [phone] * Verbal permission to speak to the caregivers and representatives has been obtained from the patient. Yes * Community resources currently utilized None * Additional services required to return to the preadmission environment? No * Can the patient safely return to the preadmission environment? Yes * Has this patient been hospitalized within the prior 30 days at any hospital? No Last DP export: 05/23/19 6:40 pm Patient Name: NORA ARANGO Page [id number] at 1922 All edits/amendments must be made on the electronic document DICTATION DATE: 05/27/191920 BARREL WATERER: HUMBERTO 05/27/191920 RPT#: [id number] DC DATE:05/27/19 STATUS: DIS IN [facility] [address] [place] [address] END OF REPORT
--- NOTE | 2019-06-03 12:04 | EC ---
PATIENT:NORA ARANGO DATE OF SERVICE: 05/20/19 SEX: F MEDICAL RECORD: [id number] DATE OF : [birth year] LOCATION:[facility] D231 AGE OF PATIENT: 68 ADMISSION DATE: 05/20/19 REFERRING PHYSICIAN: INTERPRETING PHYSICIAN: CORRIE SARGENT MD ECHOCARDIOGRAM REPORT ECHO CHARGES 4 ECHO COMPLETE Date: 05/21/19 CLINICAL DIAGNOSIS: HYPOTENTION REQUIRING PRESSORS ECHOCARDIOGRAPHIC MEASUREMENTS (adult normal given) AC root (d.<3.7cm) 3.2 cm LV Septum d (<1.2 cm> 0.8 cm Valve Excursion 1.8 cm LV Septum (systole) 1.1 cm Left Atria (s.<4.0cm> 2.6 cm LVPW d(<1.2cm) 1.1 cm RV (d.<2.3cm) 3.1 cm LVPW (sytole) 1.3 cm LV diastole(<5.6CM) 4.8 cm MV E-F(>70mm/sec) cm LV systole 3.2 cm LVOT Diameter 1.9 cm MV exc.(>10mm) cm Est.ejection fraction (50-75%) % DOPPLER: LVIT cm/sec A 80 cm/sec E 60 cm/sec LA cm/sec RVSP 48.5 mmHg LVOT 117 cm/sec AOP1/2T m/s Asc. Ao 151 cm/sec RVOT 97 cm/sec RA cm/sec PA 109 cm/sec AV Gradient Peak 9.1 mmHg AV Mean 4.1 mmHg AV Area 2.5 cm MV Gradient Peak 3.3 mmHg MV Mean 1.8 mmHg MV Area cm COMMENTS: Blockman: May MORALES Patient Care Representative: 1 Dr. Sargent TAPE# PACS Pericardial Effusion N DATE OF SERVICE: FINDINGS: 1. Left ventricular chamber size is within normal limits. Left ventricular systolic function is normal. Overall ejection fraction estimated at 55%. 2. Left atrium, right atrium, and right ventricular chamber sizes are within normal limits. 3. Valvular structures have normal structure and motion. 4. Doppler interrogation reveals mild tricuspid regurgitation, no other valvular insufficiency or stenosis. Pulmonary systolic pressure is estimated 48 ECHOCARDIOGRAM REPORT [id number] NORA ARANGO mmHg. 5. No evidence of pericardial effusion or left ventricular thrombus. TRANSINT:[id number] Voice Confirmation ID: [id number] DOCUMENT ID: [id number] CORRIE SARGENT MD at 1204 CC: [id number] DICTATION DATE: 05/21/19 1315 CELL COVERER: 05/21/19 1324 DIS IN 05/27/19 [place] [id number] [place] [id number]
--- NOTE | 2019-06-03 12:04 | CN ---
PATIENT NAME:NORA ARANGO MEDICAL RECORD: [id number] : [birth year] LOCATION:[facility].2310 ADMIT DATE: 05/20/19 ACCOUNT: [id number] CONSULTING PHYSICIAN: CORRIE OLVERA MD REFERRING PHYSICIAN: ARBEN CALDERON MD DATE OF CONSULTATION: 05/21/2019 ADDENDUM PHYSICAL EXAMINATION: GENERAL APPEARANCE: Well-nourished, well-developed, appears stated age. Level of distress, comfortable. PSYCHIATRIC: Mental status, alert, normal affect. Orientation, oriented to time, place and person. EYES: Lids and conjunctiva, noninjected. No discharge, no pallor. ENT: Lips, teeth, gums, normal dentition. Oropharynx, no cyanosis, no pallor. NECK: Carotid arteries, bilateral normal upstroke, no bruits, no thrills. JUGULAR VEINS: No jugular venous pressure or distention. CERVICAL LYMPH NODES: Nontender, nonenlarged. THYROID: Not enlarged. Nontender. No nodules. LUNGS: Respiratory effort, unlabored. CHEST: Normal curvature. No thoracic deformity. No chest wall tenderness. Percussion, resonant. Auscultation, clear. No wheezes, no rales, no rhonchi. CARDIOVASCULAR: Precordial exam, nondisplaced. No heaves or pericardial thrills. Rate and rhythm, regular. Heart sounds, normal S1, normal S2. No S3, no gallop, no rub. Systolic murmur, not heard. Diastolic murmur, not heard. EXTREMITIES: No cyanosis, no edema. Peripheral pulses, full and equal in all extremities, except as noted. No bruits appreciated. ABDOMEN: Soft, nondistended. Normal aorta. No bruit. Nontender. No masses. Liver, nontender, no hepatomegaly. Spleen, nontender, no splenomegaly. MUSCULOSKELETAL: No joint tenderness. No joint swelling. No erythema. NEUROLOGICAL: Normal gait, normal strength, normal tone. SKIN: Warm and dry. TRANSINT:[id number] Voice Confirmation ID: [id number] DOCUMENT ID: [id number] CORRIE OLVERA MD at 1204 CC: [id number] DICTATION DATE: 05/21/19 1235 BROOMCORN SEEDER: 05/21/19 1241 DIS IN 05/27/19 [facility] [address] [facility] [place] [address]
== END 2019-05-27 11:00 | DRG 871 ==
LOC: D.ICU 12:09
PROVIDERS: Internal Medicine; Internal Medicine Hematology & Oncology; Internal Medicine Medical Oncology; Internal Medicine Pulmonary Disease; ADMIT Emergency Medicine; ATTEND Emergency Medicine
PROC: 05HN33Z Insertion of Infusion Device into Left Internal Jugular Vein, Percutaneous Approach (ICD-10-PCS; principal; 2019-05-21)
DX: A41.9 Sepsis, unspecified organism (principal); N17.0 Acute kidney failure with tubular necrosis; J18.1 Lobar pneumonia, unspecified organism; R65.21 Severe sepsis with septic shock; I50.33 Acute on chronic diastolic (congestive) heart failure; E87.2 Acidosis; B37.49 Other urogenital candidiasis; K76.6 Portal hypertension; D69.6 Thrombocytopenia, unspecified; D64.9 Anemia, unspecified; E87.6 Hypokalemia; Z85.038 Personal history of other malignant neoplasm of large intestine; I48.2 Chronic atrial fibrillation; K44.9 Diaphragmatic hernia without obstruction or gangrene; R60.1 Generalized edema; Z66 Do not resuscitate